=== PATIENT | male | born 1940 | race Caucasian/White ===

== ENCOUNTER 2019-02-28 18:49 | Inpatient (IN) | payer MEDICARE, MEDICAID ==
[~2019-02-28] VITALS: Ht 177.8 cm; Wt 72.9 kg
[~2019-02-28 18:49] MED LIST: ACET325T14 PO; ALLO300T PO; AMLO2.5T5 PO; CARV12.52 PO; CITA40TA5 PO; GABA300C10 PO; HEPA50002 SQ; HYDR25TA6 PO; INSU100I11 SQ-INSULIN; LISI40TA PO; METF500T17 PO; ROPI1TAB2 PO; SALM50DI IH; TAMS0.4C2 PO
--- NOTE | 2019-02-28 19:16 | NUR ---
FIRST CONTACT WITH PT: PT INCREASED WOB, AUDIBLE WHEEZES, MUSCLE RETRACTION AND ACCESSORY MUSCLE USE. BP 199/99. PT ON ALL MONITORS. THIS RN ESTABLISHED 20G PIV IN RIGHT AC. RT AND MD AT BEDSIDE. PT MOVED FROM 16 TO TRAUMA 4 FOR BIPAP. HANDOFF TO ABHIJEET, TRAUMA RN.
[2019-02-28] MEDS ORDERED: ALBUTEROL/IPRATROPIUM 2.5MG/0.5MG, 3 ML ONE (19:19)
[2019-02-28] MEDS ORDERED: ALBUTEROL SULFATE 2.5 MG/3 ML ONE (19:19)
--- NOTE | 2019-02-28 19:19 | NUR ---
Pt moved to Tr04 for bipap use and increased sob. Pt "see saw" breathing and talking in 1-3 word sentences. Pt head against gurney, but up at almost 90 degree angle. Pt moderate increase wob noted. Bipap initiated and pt tolerating well. 2nd iv established at this time.
[2019-02-28] MEDS ORDERED: methylPREDNISolone SOD SUCC 125 MG/2 ML ONE (19:27)
[2019-02-28 19:28] LABS: BASOPHILS # (AUTO) 0.04 x10^3/uL (0-0.1); BASOPHILS % (AUTO) 1 % (0-1); EOSINOPHILS # (AUTO) 0.22 x10^3/uL (0-0.4); EOSINOPHILS % (AUTO) 3 % (1-7); LYMPHOCYTES # (AUTO) 1.69 x10^3/uL (1-3.4); LYMPHOCYTES % (AUTO) 22 % (22-44); MD NO; MEAN CORPUSCULAR HEMOGLOBIN 31.3 pg (27.5-34.5); MEAN CORPUSCULAR HGB CONC 32.9 g/dL (33.2-36.2); MEAN CORPUSCULAR VOLUME 95.3 fL (81-97); MEAN PLATELET VOLUME 7.2 fL (7.4-10.4); MONOCYTES # (AUTO) 0.62 x10^3/uL (0.2-0.8); MONOCYTES % (AUTO) 8 % (2-9); NEUTROPHILS # (AUTO) 5.14 x10^3/uL (1.8-6.8); NEUTROPHILS % (AUTO) 67 % (42-75); PLATELET COUNT 315 x10^3/uL (130-400); RED BLOOD COUNT 5.64 x10^6/uL (4.38-5.82); RED CELL DISTRIBUTION WIDTH 15.2 % (9.4-14.8)
[2019-02-28] MEDS ORDERED: SODIUM CHLORIDE FLUSH 10ML SYR IVF ONE (19:30)
[2019-02-28] MEDS ORDERED: ALBUTEROL/IPRATROPIUM 2.5MG/0.5MG, 3 ML NPPB PRN ×2 (19:30→23:00)
[2019-02-28] MEDS ORDERED: methylPREDNISolone SOD SUCC 125 MG/2 ML IV ONE (19:30)
[2019-02-28 19:33] LABS: ALANINE AMINOTRANSFERASE 11 U/L (12-78); ALBUMIN 3.9 g/dL (3.4-5.0); ANION GAP 6 mmol/L (5-15); CALCIUM 9.2 mg/dL (8.5-10.1); CHLORIDE 94 mmol/L (98-107)
[2019-02-28] MEDS ORDERED: MAGNESIUM SULFATE PMX 2GM/50ML 50 ML ONE (19:36)
[2019-02-28 19:37] LABS: ALKALINE PHOSPHATASE 107 U/L (45-117); BILIRUBIN,TOTAL 0.5 mg/dL (0.2-1.0); TOTAL PROTEIN 8.1 g/dL (6.4-8.2); TROPONIN I < 0.015 ng/mL (0.000-0.045)
--- NOTE | 2019-02-28 19:53 | NUR ---
Pt resting more comfortably on gurney. Easily rousable to name A+[id number] at this time. aware.
[2019-02-28] MEDS ORDERED: SODIUM CHLORIDE 0.9%, 500ML IVBOLUS ONE (20:00)
[2019-02-28] MEDS ORDERED: MAGNESIUM SULFATE PMX 2GM/50ML 50 ML IV ONE (20:00)
[2019-02-28] MEDS ORDERED: DIVA125C2 PO (20:01)
[2019-02-28] MEDS ORDERED: ALBU0.63 NEB (20:01)
[2019-02-28] MEDS ORDERED: SENN1TAB59 PO (20:01)
[2019-02-28] MEDS ORDERED: PARO20TA4 PO (20:01)
[2019-02-28] MEDS ORDERED: PANT40TA5 PO (20:01)
--- NOTE | 2019-02-28 20:26 | NUR ---
Awaiting culture draw before abx admin.
[2019-02-28] MEDS ORDERED: AZITHROMYCIN 500 MG in SODIUM CHLORIDE 0.9% 250 ML IV ONE (20:30)
--- NOTE | 2019-02-28 21:24 | NUR ---
[employer] and hospitalst at bedside for assessment.
[2019-02-28] MEDS ORDERED: PROMETHAZINE 25 MG/ML, 1ML IM PRN (21:30)
[2019-02-28] MEDS ORDERED: FAMOTIDINE 20 MG/2 ML IVPush SCH (21:30)
[2019-02-28] MEDS ORDERED: ONDANSETRON 2MG/ML, 2ML IVPush PRN (21:30)
[2019-02-28] MEDS ORDERED: hydrALAzine 20 MG/ML, 1ML IVPush PRN (21:30)
[2019-02-28] MEDS ORDERED: morphine SULFATE 10 MG/ML, 1ML IVPush PRN (21:30)
[2019-02-28] MEDS ORDERED: ONDANSETRON ODT 4 MG PO PRN (21:30)
[2019-02-28] MEDS ORDERED: BISACODYL 10 MG SUPP PR PRN (21:30)
[2019-02-28] MEDS: INSULIN LISPRO 100 UNITS/ML, PEN SQ-INSULIN SCH (22:00)
[2019-02-28] MEDS ORDERED: SALMETEROL XINAFOATE IH PRN (22:00)
[2019-02-28 22:24] LABS: FREE T4 (FREE THYROXINE) 1.12 ng/dL (0.76-1.46)
[2019-02-28 22:47] LABS: HEMOGLOBIN A1C 6.5 % (4.2-6.3)
[2019-02-28] MEDS: SODIUM CHLORIDE 0.9% 1,000 ML IV SCH (22:53)
[2019-02-28] MEDS: ROPINIROLE 1MG TABLET PO SCH (22:54)
[2019-02-28] MEDS: AMLODIPINE 2.5 MG TABLET PO SCH (22:54)
[2019-02-28] MEDS: methylPREDNISolone SOD SUCC 125 MG/2 ML IVPush SCH (22:54)
[2019-02-28] MEDS: TAMSULOSIN 0.4 MG CAP.ER.24H PO SCH (22:54)
[2019-02-28] MEDS: CARVEDILOL 12.5 MG TABLET PO SCH (22:54)
[2019-02-28] MEDS: NICOTINE 14MG/24 HR PATCH.TD24 TD SCH (22:55)
[2019-02-28] MEDS: GABAPENTIN 300 MG CAPSULE PO SCH (22:55)
[2019-02-28] MEDS: LISINOPRIL 40 MG TABLET PO SCH (22:55)
[2019-02-28] MEDS: ENOXAPARIN 40 MG/0.4 ML SQ SCH (22:55)
[2019-02-28] MEDS ORDERED: ALBUTEROL/IPRATROPIUM 2.5MG/0.5MG, 3 ML NPPB SCH (23:00)
[2019-02-28] MEDS: POLYETHYLENE GLYCOL 17 GM PACKET PO PRN (23:28)
[2019-02-28] MEDS: BUDESONIDE 0.5 MG/2 ML INHA INH SCH (23:50)
[2019-03-01 04:38] LABS: BASOPHILS % (AUTO) 0 % (0-1); EOSINOPHILS % (AUTO) 0 % (1-7); LYMPHOCYTES # (AUTO) 0.57 x10^3/uL (1-3.4); LYMPHOCYTES % (AUTO) 15 % (22-44); MD NO; MEAN CORPUSCULAR HEMOGLOBIN 31.4 pg (27.5-34.5); MEAN CORPUSCULAR HGB CONC 32.8 g/dL (33.2-36.2); MEAN CORPUSCULAR VOLUME 95.8 fL (81-97); MEAN PLATELET VOLUME 7.3 fL (7.4-10.4); MONOCYTES # (AUTO) 0.03 x10^3/uL (0.2-0.8); MONOCYTES % (AUTO) 1 % (2-9); NEUTROPHILS # (AUTO) 3.13 x10^3/uL (1.8-6.8); NEUTROPHILS % (AUTO) 84 % (42-75); PLATELET COUNT 282 x10^3/uL (130-400); RED BLOOD COUNT 5.33 x10^6/uL (4.38-5.82); RED CELL DISTRIBUTION WIDTH 15.2 % (9.4-14.8)
[2019-03-01 04:47] LABS: ALANINE AMINOTRANSFERASE 13 U/L (12-78); ALBUMIN 3.3 g/dL (3.4-5.0); ANION GAP 7 mmol/L (5-15); CALCIUM 8.5 mg/dL (8.5-10.1); CHLORIDE 100 mmol/L (98-107); CHOLESTEROL, TOTAL 143 mg/dL (140-239); CREATININE 0.85 mg/dL (0.7-1.3)
[2019-03-01 04:50] LABS: ALKALINE PHOSPHATASE 93 U/L (45-117); BILIRUBIN,TOTAL 0.4 mg/dL (0.2-1.0); HDL CHOL % 33 % (26-37); HDL CHOLESTEROL (DIRECT) 47 mg/dL (40-60); LDL CHOLESTEROL,CALCULATED 81 mg/dL (54-169); LDL/HDL RATIO 1.7 (0.5-3.0); TRIGLYCERIDES 73 mg/dL (50-200); VLDL CHOLESTEROL 15 mg/dL (0-25)
[2019-03-01] MEDS: methylPREDNISolone SOD SUCC 125 MG/2 ML IVPush SCH (05:19)
[2019-03-01] MEDS: SODIUM CHLORIDE 0.9% 1,000 ML IV SCH (06:40)
[2019-03-01 06:56] LABS: MICROSCOPIC AUTO
[2019-03-01 06:58] LABS: CULTURE INDICATED? NO
[2019-03-01] MEDS: ALBUTEROL/IPRATROPIUM 2.5MG/0.5MG, 3 ML NPPB SCH ×4 (07:00→18:35)
[2019-03-01] MEDS: BUDESONIDE 0.5 MG/2 ML INHA INH SCH ×2 (07:06→21:00)
[2019-03-01] MEDS: INSULIN LISPRO 100 UNITS/ML, PEN SQ-INSULIN SCH ×4 (07:15→20:49)
[2019-03-01] MEDS ORDERED: PAROXETINE 10 MG TABLET ONE (07:59)
[2019-03-01] MEDS: AMLODIPINE 2.5 MG TABLET PO SCH ×2 (08:04→21:15)
[2019-03-01] MEDS: CARVEDILOL 12.5 MG TABLET PO SCH ×2 (08:04→21:16)
[2019-03-01] MEDS: PAROXETINE 20 MG TABLET PO SCH (08:04)
[2019-03-01] MEDS: DIVALPROEX 125 MG CAP.SPRINK PO SCH (08:04)
[2019-03-01] MEDS: HYDROCHLOROTHIAZIDE 25 MG TABLET PO SCH (08:04)
[2019-03-01] MEDS: PANTOPROZOLE 40MG TABLET PO SCH (08:04)
[2019-03-01] MEDS: GABAPENTIN 300 MG CAPSULE PO SCH ×2 (08:04→21:16)
[2019-03-01] MEDS: SENNA/DOCUSATE TABLET PO SCH (08:04)
[2019-03-01] MEDS: ALLOPURINOL 100 MG TABLET PO SCH (08:05)
[2019-03-01] MEDS ORDERED: CITALOPRAM 20 MG TABLET PO SCH (09:00)
[2019-03-01] MEDS: methylPREDNISolone SOD SUCC 40 MG/ML IVPush SCH ×2 (12:04→20:42)
[2019-03-01] MEDS: metFORMIN 500 MG TABLET PO SCH (17:51)
[2019-03-01] MEDS ORDERED: AZITHROMYCIN 500 MG in SODIUM CHLORIDE 0.9% 250 ML IV SCH (19:00)
[2019-03-01 19:50] VITALS: BP 127/63
[2019-03-01 21:11] VITALS: BP 126/62
[2019-03-01] MEDS: TAMSULOSIN 0.4 MG CAP.ER.24H PO SCH (21:16)
[2019-03-01] MEDS: LISINOPRIL 40 MG TABLET PO SCH (21:16)
[2019-03-01] MEDS: ROPINIROLE 1MG TABLET PO SCH (21:16)
[2019-03-01] MEDS: DOCUSATE 100 MG CAPSULE PO PRN (21:16)
[2019-03-01] MEDS: NICOTINE 14MG/24 HR PATCH.TD24 TD SCH (21:17)
[2019-03-01] MEDS: ENOXAPARIN 40 MG/0.4 ML SQ SCH (21:58)
[2019-03-02 01:03] VITALS: BP 143/79
[2019-03-02] MEDS: methylPREDNISolone SOD SUCC 40 MG/ML IVPush SCH ×3 (04:22→19:32)
[2019-03-02] MEDS: ACETAMINOPHEN 325 MG TABLET PO PRN ×2 (04:26→19:32)
[2019-03-02] MEDS: POLYETHYLENE GLYCOL 17 GM PACKET PO PRN (04:45)
[2019-03-02] MEDS: ALBUTEROL/IPRATROPIUM 2.5MG/0.5MG, 3 ML NPPB SCH ×4 (06:51→20:00)
[2019-03-02 07:30] VITALS: BP 134/75
[2019-03-02] MEDS: AMLODIPINE 2.5 MG TABLET PO SCH ×2 (08:43→19:32)
[2019-03-02] MEDS: PAROXETINE 20 MG TABLET PO SCH (08:43)
[2019-03-02] MEDS: HYDROCHLOROTHIAZIDE 25 MG TABLET PO SCH (08:43)
[2019-03-02] MEDS: ALLOPURINOL 100 MG TABLET PO SCH (08:44)
[2019-03-02] MEDS: PANTOPROZOLE 40MG TABLET PO SCH (08:44)
[2019-03-02] MEDS: CARVEDILOL 12.5 MG TABLET PO SCH ×2 (08:44→19:32)
[2019-03-02] MEDS: DIVALPROEX 125 MG CAP.SPRINK PO SCH (08:45)
[2019-03-02] MEDS: GABAPENTIN 300 MG CAPSULE PO SCH ×2 (08:45→19:33)
[2019-03-02] MEDS: INSULIN LISPRO 100 UNITS/ML, PEN SQ-INSULIN SCH ×4 (08:46→19:49)
[2019-03-02] MEDS: metFORMIN 500 MG TABLET PO SCH ×2 (08:46→17:24)
[2019-03-02] MEDS: BUDESONIDE 0.5 MG/2 ML INHA INH SCH ×2 (09:00→21:00)
[2019-03-02] MEDS: SENNA/DOCUSATE TABLET PO SCH (09:00)
[2019-03-02 13:34] VITALS: BP 125/74
[2019-03-02 14:26] VITALS: BP 137/70
[2019-03-02] MEDS: DOXYCYCLINE 100 MG in DEXTROSE 5% 250 ML IV SCH (17:24)
[2019-03-02 19:19] VITALS: BP 147/79
[2019-03-02] MEDS: DOCUSATE 100 MG CAPSULE PO PRN (19:32)
[2019-03-02] MEDS: ROPINIROLE 1MG TABLET PO SCH (19:32)
[2019-03-02] MEDS: TAMSULOSIN 0.4 MG CAP.ER.24H PO SCH (19:32)
[2019-03-02] MEDS: LISINOPRIL 40 MG TABLET PO SCH (19:33)
[2019-03-02] MEDS: NICOTINE 14MG/24 HR PATCH.TD24 TD SCH (19:46)
[2019-03-02] MEDS: OXYcodone IR 5MG TABLET PO PRN (20:20)
[2019-03-02] MEDS: ENOXAPARIN 40 MG/0.4 ML SQ SCH (22:03)
[2019-03-03 00:46] VITALS: BP 120/80
[2019-03-03] MEDS: methylPREDNISolone SOD SUCC 40 MG/ML IVPush SCH (03:06)
[2019-03-03] MEDS: OXYcodone IR 5MG TABLET PO PRN (03:07)
[2019-03-03] MEDS: DOXYCYCLINE 100 MG in DEXTROSE 5% 250 ML IV SCH (04:52)
[2019-03-03 06:04] LABS: MEAN CORPUSCULAR HEMOGLOBIN 31.4 pg (27.5-34.5); MEAN CORPUSCULAR HGB CONC 32.2 g/dL (33.2-36.2); MEAN CORPUSCULAR VOLUME 97.4 fL (81-97); MEAN PLATELET VOLUME 8.1 fL (7.4-10.4); PLATELET COUNT 299 x10^3/uL (130-400); RED BLOOD COUNT 4.87 x10^6/uL (4.38-5.82); RED CELL DISTRIBUTION WIDTH 15.8 % (9.4-14.8)
[2019-03-03 06:07] LABS: CHLORIDE 96 mmol/L (98-107)
[2019-03-03 06:14] LABS: ALANINE AMINOTRANSFERASE 11 U/L (12-78); ALBUMIN 2.9 g/dL (3.4-5.0); ALKALINE PHOSPHATASE 69 U/L (45-117); ANION GAP 6 mmol/L (5-15); BILIRUBIN,TOTAL 0.3 mg/dL (0.2-1.0); CALCIUM 8.4 mg/dL (8.5-10.1); CREATININE 1.32 mg/dL (0.7-1.3)
[2019-03-03 06:26] LABS: BASOPHILS % (AUTO) 0 % (0-1); EOSINOPHILS % (AUTO) 0 % (1-7); LYMPHOCYTES # (AUTO) 0.41 x10^3/uL (1-3.4); LYMPHOCYTES % (AUTO) 4 % (22-44); MD SCAN; MONOCYTES % (AUTO) 1 % (2-9); NEUTROPHILS # (AUTO) 10.99 x10^3/uL (1.8-6.8); NEUTROPHILS % (AUTO) 96 % (42-75)
[2019-03-03] MEDS: ALBUTEROL/IPRATROPIUM 2.5MG/0.5MG, 3 ML NPPB SCH ×4 (06:38→18:48)
[2019-03-03 07:59] VITALS: BP 135/74
[2019-03-03] MEDS: INSULIN LISPRO 100 UNITS/ML, PEN SQ-INSULIN SCH ×3 (08:38→16:38)
[2019-03-03] MEDS: DIVALPROEX 125 MG CAP.SPRINK PO SCH (08:39)
[2019-03-03] MEDS: AMLODIPINE 2.5 MG TABLET PO SCH ×2 (08:39→22:15)
[2019-03-03] MEDS: ALLOPURINOL 100 MG TABLET PO SCH (08:39)
[2019-03-03] MEDS: metFORMIN 500 MG TABLET PO SCH ×2 (08:39→17:49)
[2019-03-03] MEDS: SENNA/DOCUSATE TABLET PO SCH (08:39)
[2019-03-03] MEDS: PANTOPROZOLE 40MG TABLET PO SCH (08:40)
[2019-03-03] MEDS: HYDROCHLOROTHIAZIDE 25 MG TABLET PO SCH (08:40)
[2019-03-03] MEDS: GABAPENTIN 300 MG CAPSULE PO SCH ×2 (08:40→22:15)
[2019-03-03] MEDS: PAROXETINE 20 MG TABLET PO SCH (08:40)
[2019-03-03] MEDS: CARVEDILOL 12.5 MG TABLET PO SCH ×2 (08:40→22:16)
[2019-03-03] MEDS: BUDESONIDE 0.5 MG/2 ML INHA INH SCH ×3 (09:00→22:06)
[2019-03-03] MEDS ORDERED: MORPHINE SULFATE 4 MG/ML, 1ML IVPush PRN ×2 (12:30→22:30)
[2019-03-03 14:42] VITALS: BP 137/75
[2019-03-03] MEDS ORDERED: metFORMIN 500 MG TABLET ONE (17:46)
[2019-03-03 19:39] VITALS: BP 147/77
[2019-03-03] MEDS ORDERED: DOXYCYCLINE 100MG TABLET PO SCH (21:00)
[2019-03-03] MEDS ORDERED: TAMSULOSIN 0.4 MG CAP.ER.24H PO SCH (22:05)
[2019-03-03] MEDS ORDERED: LISINOPRIL 40 MG TABLET PO SCH (22:06)
[2019-03-03 22:14] VITALS: BP 150/85
[2019-03-03] MEDS: DOXYCYCLINE 100MG TABLET PO SCH (22:16)
[2019-03-03] MEDS ORDERED: ONDANSETRON ODT 4 MG PO PRN (22:30)
[2019-03-03] MEDS ORDERED: PROMETHAZINE 25 MG/ML, 1ML IM PRN (22:30)
[2019-03-03] MEDS ORDERED: OXYcodone IR 5MG TABLET PO PRN (22:30)
[2019-03-03] MEDS ORDERED: ENOXAPARIN 40 MG/0.4 ML SQ SCH (22:30)
[2019-03-03] MEDS ORDERED: ONDANSETRON 2MG/ML, 2ML IVPush PRN (22:30)
[2019-03-03] MEDS ORDERED: ACETAMINOPHEN 325 MG TABLET PO PRN (22:30)
[2019-03-03] MEDS ORDERED: BISACODYL 10 MG SUPP PR PRN (22:30)
[2019-03-03] MEDS ORDERED: POLYETHYLENE GLYCOL 17 GM PACKET PO PRN (22:30)
[2019-03-03] MEDS ORDERED: hydrALAzine 20 MG/ML, 1ML IVPush PRN (22:30)
[2019-03-03] MEDS ORDERED: NICOTINE 14MG/24 HR PATCH.TD24 TD SCH (22:30)
[2019-03-03] MEDS ORDERED: DOCUSATE 100 MG CAPSULE PO PRN (22:30)
[2019-03-04 01:20] VITALS: BP 126/79
[2019-03-04 04:41] LABS: BASOPHILS % (AUTO) 0 % (0-1); EOSINOPHILS # (AUTO) 0.03 x10^3/uL (0-0.4); EOSINOPHILS % (AUTO) 0 % (1-7); LYMPHOCYTES # (AUTO) 0.71 x10^3/uL (1-3.4); LYMPHOCYTES % (AUTO) 8 % (22-44); MD NO; MEAN CORPUSCULAR HGB CONC 32.4 g/dL (33.2-36.2); MEAN CORPUSCULAR VOLUME 95.9 fL (81-97); MEAN PLATELET VOLUME 7.9 fL (7.4-10.4); MONOCYTES # (AUTO) 0.53 x10^3/uL (0.2-0.8); MONOCYTES % (AUTO) 6 % (2-9); NEUTROPHILS # (AUTO) 7.86 x10^3/uL (1.8-6.8); NEUTROPHILS % (AUTO) 86 % (42-75); PLATELET COUNT 256 x10^3/uL (130-400); RED BLOOD COUNT 4.87 x10^6/uL (4.38-5.82); RED CELL DISTRIBUTION WIDTH 15.4 % (9.4-14.8)
[2019-03-04 04:54] LABS: ANION GAP 5 mmol/L (5-15); CALCIUM 8.3 mg/dL (8.5-10.1); CHLORIDE 93 mmol/L (98-107)
[2019-03-04 04:55] LABS: CREATININE 1.12 mg/dL (0.7-1.3)
[2019-03-04 07:15] VITALS: BP 163/82
[2019-03-04] MEDS ORDERED: metFORMIN 500 MG TABLET PO SCH (08:00)
[2019-03-04] MEDS: BUDESONIDE 0.5 MG/2 ML INHA INH SCH (08:05)
[2019-03-04] MEDS: ALBUTEROL/IPRATROPIUM 2.5MG/0.5MG, 3 ML NPPB SCH ×2 (08:05→11:25)
[2019-03-04] MEDS ORDERED: MAGNESIUM CITRATE 300ML ORAL SOL PO PRN (08:30)
[2019-03-04] MEDS ORDERED: MAGNESIUM HYDROXIDE 8%, 30ML UDC PO PRN (08:30)
[2019-03-04] MEDS ORDERED: BISACODYL 10 MG SUPP PR PRN (08:30)
[2019-03-04] MEDS ORDERED: PRED10TA PO (08:40)
[2019-03-04] MEDS ORDERED: DOXY100T PO (08:40)
[2019-03-04] MEDS ORDERED: GABA300C10 PO (08:40)
[2019-03-04] MEDS: DOXYCYCLINE 100MG TABLET PO SCH (08:51)
[2019-03-04] MEDS: GABAPENTIN 300 MG CAPSULE PO SCH (08:51)
[2019-03-04] MEDS: AMLODIPINE 2.5 MG TABLET PO SCH (08:51)
[2019-03-04] MEDS: CARVEDILOL 12.5 MG TABLET PO SCH (08:51)
[2019-03-04] MEDS: INSULIN LISPRO 100 UNITS/ML, PEN SQ-INSULIN SCH ×2 (08:52→12:12)
[2019-03-04] MEDS ORDERED: ALLOPURINOL 100 MG TABLET PO SCH (09:00)
[2019-03-04] MEDS ORDERED: PAROXETINE 20 MG TABLET PO SCH (09:00)
[2019-03-04] MEDS ORDERED: PANTOPROZOLE 40MG TABLET PO SCH (09:00)
[2019-03-04] MEDS ORDERED: DIVALPROEX 125 MG CAP.SPRINK PO SCH (09:00)
[2019-03-04] MEDS ORDERED: SENNA/DOCUSATE TABLET PO SCH (09:00)
[2019-03-04] MEDS ORDERED: HYDROCHLOROTHIAZIDE 25 MG TABLET PO SCH (09:00)
[2019-03-04] MEDS ORDERED: ROPINIROLE 1MG TABLET PO SCH (21:00)
== END 2019-03-04 14:14 | DRG 189 ==
LOC: ED 20:25 → EDIP 20:33 → ED 20:46 → CCU 22:11 → 4WST 03-01 12:28 → UNDODISIN 03-03 10:30
PROVIDERS: ADMIT Internal Medicine; ATTEND Internal Medicine
PROC: 5A09357 Assistance with Respiratory Ventilation, Less than 24 Consecutive Hours, Continuous Positive Airway Pressure (ICD-10-PCS; principal; 2019-02-28)
DX: J96.21 Acute and chronic respiratory failure with hypoxia (principal); J44.1 Chronic obstructive pulmonary disease with (acute) exacerbation; E87.1 Hypo-osmolality and hyponatremia; D75.1 Secondary polycythemia; E11.9 Type 2 diabetes mellitus without complications; F03.90 Unspecified dementia, unspecified severity, without behavioral disturbance, psychotic disturbance, mood disturbance, and anxiety; G25.81 Restless legs syndrome; H35.30 Unspecified macular degeneration; Z66 Do not resuscitate; I10 Essential (primary) hypertension; K21.9 Gastro-esophageal reflux disease without esophagitis; K44.9 Diaphragmatic hernia without obstruction or gangrene; K59.00 Constipation, unspecified; M10.9 Gout, unspecified; N40.1 Benign prostatic hyperplasia with lower urinary tract symptoms; R33.8 Other retention of urine; F17.210 Nicotine dependence, cigarettes, uncomplicated; F32.9 Major depressive disorder, single episode, unspecified; T38.0X5A Adverse effect of glucocorticoids and synthetic analogues, initial encounter; Z86.73 Personal history of transient ischemic attack (TIA), and cerebral infarction without residual deficits; Z99.81 Dependence on supplemental oxygen; Z79.84 Long term (current) use of oral hypoglycemic drugs; Z79.899 Other long term (current) drug therapy; Y92.89 Other specified places as the place of occurrence of the external cause
CPT/HCPCS: 36415; 36600; 71045; 74018; 74021; 80048; 80053; 80061; 80164; 81001; 82803; 82962; 83036; 83735; 83880; 84100; 84439; 84443; 84484; 85025; 87040; 87081; 93005; 93306; 94640; 94660; 96365; 96367; 96375; G0378; J0456; J1650; J7060; J7620; J7626; J1815; J2270; J2920; J2930; J3475; J7030; J7040; J7050; J7512